=== PATIENT | female | born 1955 | race Caucasian/White ===

== ENCOUNTER 2017-12-02 18:24 | Emergency (ER) | payer OTHER ==
[~2017-12-02] VITALS: Ht 165.1 cm; Wt 75.0 kg
[~2017-12-02 18:24] MED LIST: ATARAX,VISTARIL25 MG PO; BACTRIM,SEPT1 TABLET PO; CLOBETASOL PROP60 G1 TP; CLOPIDOGREL75 MG PO; DAILY VITE1 EAC1 PO; FLONASE16 G1 BOTH NARES; NIFEDICAL XL30 MG PO; NORCO 5/3251 TABLET PO; PANTOPRAZOLE SO40 MG PO; PREDNISONE5 MG PO; PREMARIN0.3 MG PO; SIMVASTATIN40 MG PO; ZOFRAN ODT4 MG PO
[2017-12-02 19:39] LABS: BASOPHIL (%) 1.2 % (0-1); BASOPHIL COUNT 0.1 K/uL (0-0.1); EOSINOPHIL (%) 1.6 % (0-5); EOSINOPHIL COUNT 0.1 K/uL (0-0.3); HEMATOCRIT 42.4 % (36.0-46.0); HEMOGLOBIN 14.8 G/DL (11.9-15.5); IMMATURE GRANULOCYTE (%) 0.3 % (0.0-0.7); LYMPHOCYTE (%) 40.1 % (15-42); MCHC 34.9 G/DL (30.0-36.0); MCV 88.9 FL (83-99); MONOCYTE (%) 9.8 % (3-12); MONOCYTE COUNT 0.7 K/uL (0-0.8); NEUTROPHIL COUNT 3.5 K/uL (1.8-6.4); PLATELET COUNT 249 K/uL (156-360); RBC DIS.WIDTH-CV 11.6 % (11.8-14.6); RED BLOOD COUNT 4.77 M/uL (3.80-5.20); WHITE BLOOD COUNT 7.5 K/uL (4.1-10.2)
[2017-12-02 19:48] LABS: ALBUMIN 4.4 g/dL (3.2-4.8); CHLORIDE 106 mEq/L (99-109); POTASSIUM 3.8 mEq/L (3.7-5.4); SODIUM 141 mEq/L (136-147)
[2017-12-02 19:50] LABS: GLUCOSE 94 mg/dL (70-99); TOTAL PROTEIN 7.5 g/dL (6.4-8.3)
[2017-12-02 19:52] VITALS: BP 143/75
[2017-12-02 19:52] LABS: TOTAL BILIRUBIN 0.9 mg/dL (0.0-1.0)
[2017-12-02 19:54] LABS: ALKALINE PHOSPHATASE 74 IU/L (3-129); CREATININE 0.9 mg/dL (0.6-1.3); GFR ESTIMATE (CALCULATED) > 59 mL/min/
[2017-12-02 19:55] LABS: AST (GOT) 19 IU/L (2-34); UREA NITROGEN (BUN) 20 mg/dL (9-23)
[2017-12-02 19:56] LABS: DIRECT BILIRUBIN 0.3 mg/dL (0.0-0.3)
[2017-12-02 19:57] LABS: ALT (GPT) 23 IU/L (3-49)
[2017-12-03 16:31] LABS: HEPATITIS C ANTIBODY Nonreactive
[2017-12-03 16:32] LABS: HEPATITIS B SURFACE ANTIBODY REACTIVE
[2017-12-03 16:33] LABS: HIV-1/2 AB/AG COMBO Nonreactive
== END 2017-12-02 19:53 | disposition home or self-care (01) ==
LOC: EME 18:24
PROVIDERS: Physician Assistant
DX: Z77.21 Contact with and (suspected) exposure to potentially hazardous body fluids (principal); K21.9 Gastro-esophageal reflux disease without esophagitis; I10 Essential (primary) hypertension; E78.5 Hyperlipidemia, unspecified; Z86.718 Personal history of other venous thrombosis and embolism; Z91.040 Latex allergy status
CPT/HCPCS: 80048; 80076; 85025; 86703; 86706; 86803; 99281; 99283